=== PATIENT | female | born 1980 | race Two or more races ===

== ENCOUNTER 2018-07-27 08:35 | Emergency (ER) | payer MEDICAID ==
[~2018-07-27] VITALS: Ht 154.9 cm; Wt 72.6 kg
[2018-07-27 08:37] VITALS: BP 146/101
[2018-07-27] MEDS ORDERED: NAPROXEN375 M2 ORAL (09:46)
--- NOTE | 2018-07-27 09:46 | Emergency Room Report ---
History of Present Illness General Chief Complaint: General Complaint Source: Patient Present Illness [facility] This patient has intermittent pain in right jaw, exacerbated/triggered by opening mouth widely. On/off a week or two. No trauma, injury. No other joint problems. Last dentist visit about a year. No specific toothache. No headache, no neck pain. Allergies: Coded Allergies: No Known Allergies (Unverified , 07/27/18) Patient History Last Menstrual Period: 07/16/18 Now: No Nursing Documentation-[facility] Past Medical History: No Stated History Review of Systems Constitutional: Reports: no symptoms Eye: Reports: no symptoms ENT: Reports: no symptoms, see HPI, other Respiratory: Reports: no symptoms Cardiovascular: Reports: no symptoms Gastrointestinal: Reports: no symptoms Genitourinary: Reports: no symptoms Musculoskeletal: Reports: no symptoms Skin: Reports: no symptoms Psychiatric: Reports: no symptoms Neurological: Reports: no symptoms Endocrine: Reports: no symptoms Hematologic/Lymphatic: Reports: no symptoms Allergic: Reports: no symptoms All Other Systems: negative except mentioned in HPI Physical Exam Vital Signs Date Time Temp Pulse Resp B/P (MAP) Pulse Ox O2 Delivery O2 Flow Rate FiO2 07/27/18 08:37 98.0 87 20 146/101 95 Room Air 98.0 Sp02 EP Interpretation: reviewed, normal General Appearance: normal inspection, well appearing, no apparent distress, alert, GCS 15, non-toxic Head: normocephalic, atraumatic Eyes: bilateral eye normal inspection, bilateral eye PERRL, bilateral eye EOMI ENT: normal ENT inspection, hearing grossly normal, normal pharynx, no angioedema, normal voice, moist mucus membranes, other - opening mouth widely triggered symptoms. no tooth tenderness to percussion Neck: normal inspection, full range of motion, supple, no meningismus, no bony tend Respiratory: normal inspection, lungs clear, normal breath sounds, no rhonchi, no respiratory distress, no retraction, no accessory muscle use, no wheezing Cardiovascular #1: normal inspection, regular rate, rhythm, no edema Gastrointestinal: normal inspection, normal bowel sounds, non tender, soft, no mass, non-distended Musculoskeletal: gait/station normal, normal range of motion Neurologic: normal inspection, alert, oriented x3, responsive, motor strength/ tone normal Psychiatric: normal inspection, judgement/insight normal, memory normal Suicide Risk Assessment: Suicidal Ideation: No Had intent to initiate attempt: No Pt's plan for suicide attempt: No Has means to complete attempt: No Skin: normal inspection, normal color, no rash, warm/dry Medical Decision Making Diagnostic Impression: Primary Impression: TMJ syndrome Last Vital Signs Date Time Temp Pulse Resp B/P (MAP) Pulse Ox O2 Delivery O2 Flow Rate FiO2 07/27/18 08:37 98.4 87 20 146/101 95 Room Air 98.4 Disposition: HOME, SELF-CARE Scripts Naproxen* (NAPROXEN*) 375 Mg Tablet. 375 MG ORAL TWICE A DAY for 10 Days, #20 TAB Prov: Jp Santo M.D. 07/27/18 Referrals: NOT CHOSEN [facility]/,REFERRING (PCP) Patient Instructions: Temporomandibular Joint Syndrome Jp Santo M.D. Jul 27, 2018 09:46
[2018-07-27 09:54] VITALS: BP 146/101
== END 2018-07-27 09:54 | disposition home or self-care (01) ==
LOC: EMR 09:39
DX: M26.629 Arthralgia of temporomandibular joint, unspecified side (principal)
CPT/HCPCS: 99282

== ENCOUNTER 2019-02-10 08:35 | Emergency (ER) | payer MEDICAID ==
[~2019-02-10] VITALS: Ht 154.9 cm; Wt 84.8 kg
[~2019-02-10 08:35] MED LIST: NAPROXEN375 M2 ORAL
[2019-02-10] MEDS ORDERED: NKM (08:53)
[2019-02-10 09:24] LABS: HEMATOCRIT 27.4 % (37.0-47.0); HEMOGLOBIN 8.2 G/DL (12.0-16.0); MEAN CORPUSCULAR VOLUME 61 FL (80-99); PLATELET COUNT 493 K/UL (150-450); RED BLOOD COUNT 4.48 M/UL (4.20-5.40); RED CELL DISTRIBUTION WIDTH 15.9 % (11.6-14.8); WHITE BLOOD COUNT 12.8 K/UL (4.8-10.8)
[2019-02-10 09:38] LABS: ANION GAP 12 mmol/L (5-15); BLOOD UREA NITROGEN 8 mg/dL (7-18); CALCIUM 9.4 MG/DL (8.5-10.1); CARBON DIOXIDE 28 MMOL/L (21-32); CHLORIDE 98 MMOL/L (98-107); CREATININE 0.7 MG/DL (0.55-1.30); SODIUM 138 MMOL/L (136-145)
--- NOTE | 2019-02-10 11:02 | Emergency Room Report ---
History of Present Illness General Chief Complaint: Complications Source: Patient Present Illness HPI Patient presents with prescription paper documenting low hemoglobin count from [facility] physician Dr. grimaldo Reports hemoglobin count of 7.7 and requesting blood transfusion Patient reports that she is newly diagnosed with reports that her last Rickie cycle was after the first week of December Denies any abdominal pain She reported that she had some faint spotting previously she is Denies any abdominal pain denies any vomiting or diarrhea denies any flank pain The prescription was written yesterday with blood results from the Allergies: Coded Allergies: No Known Allergies (Unverified , 07/27/18) Patient History Past Medical History: see triage record Pertinent Family History: none Last Menstrual Period: 01/03/2019 Now: Yes : 2 Para: 1 Reviewed Nursing Documentation: PMH: Agreed; PSxH: Agreed Nursing Documentation-PMH Past Medical History: No History, Except For Review of Systems All Other Systems: negative except mentioned in HPI Physical Exam Vital Signs Date Time Temp Pulse Resp B/P (MAP) Pulse Ox O2 Delivery O2 Flow Rate FiO2 02/10/19 08:48 98.1 82 14 136/91 100 Room Air Sp02 EP Interpretation: reviewed, normal General Appearance: well appearing, no apparent distress Head: normocephalic, atraumatic Eyes: bilateral eye PERRL, bilateral eye EOMI ENT: hearing grossly normal, normal pharynx, TMs + canals normal, uvula midline Neck: full range of motion, supple, no meningismus, no bony tend Respiratory: lungs clear, normal breath sounds, no rhonchi, no respiratory distress, no retraction, no accessory muscle use Cardiovascular #1: normal peripheral pulses, regular rate, rhythm, no edema, no gallop, no JVD, no murmur Gastrointestinal: normal bowel sounds, non tender, soft, no mass, no organomegaly, non-distended, no guarding, no hernia, no pulsatile mass, no rebound Genitourinary: no CVA tenderness Musculoskeletal: normal inspection Neurologic: oriented x3, responsive, punch hand III-XII nml as tested, motor strength/ tone normal, sensory intact Psychiatric: mood/affect normal Skin: normal color, no rash, warm/dry, palpation normal Lymphatic: normal inspection, no adenopathy Medical Decision Making Diagnostic Impression: Primary Impression: Complication of Additional Impression: Threatened miscarriage ER Course With the patient's history and examination, multiple differentials considered, including but not limited to , ectopic , ovarian torsion, gastritis, cholecystitis, pancreatitis, appendicitis Hemoglobin count today is 8.2 Patient remains hemodynamically stable appropriate heart rate blood pressure is normal Patient is otherwise completely asymptomatic Today's ultrasound does not reveal any obvious intrauterine patient's beta Quant is documented at 2700 I discussed with the patient the possibilities of incomplete miscarriage Versus ectopic Versus early Less likely early as the beta Quant is at 2700 Patient was provided copies of paperwork Consult is made with [facility] They do agree with the patient's a symptomatic findings in the ultrasound and blood work lack of any free fluid Patient is stable for close repeat outpatient follow-up and return with any concerns or changes such as any pain Labs Test 02/10/19 09:10 White Blood Count 12.8 K/UL (4.8-10.8) Red Blood Count 4.48 M/UL (4.20-5.40) Hemoglobin 8.2 G/DL (12.0-16.0) Hematocrit 27.4 % (37.0-47.0) Mean Corpuscular Volume 61 FL (80-99) Mean Corpuscular Hemoglobin 18.3 PG (27.0-31.0) Mean Corpuscular Hemoglobin Concent 29.9 G/DL (32.0-36.0) Red Cell Distribution Width 15.9 % (11.6-14.8) Platelet Count 493 K/UL (150-450) Mean Platelet Volume 5.7 FL (6.5-10.1) Neutrophils (%) (Auto) % (45.0-75.0) Lymphocytes (%) (Auto) % (20.0-45.0) Monocytes (%) (Auto) % (1.0-10.0) Eosinophils (%) (Auto) % (0.0-3.0) Basophils (%) (Auto) % (0.0-2.0) Differential Total Cells Counted 100 Neutrophils % (Manual) 75 % (45-75) Lymphocytes % (Manual) 17 % (20-45) Monocytes % (Manual) 8 % (1-10) Eosinophils % (Manual) 0 % (0-3) Basophils % (Manual) 0 % (0-2) Band Neutrophils 0 % (0-8) Platelet Estimate Adequate Platelet Morphology Normal Hypochromasia 1+ Anisocytosis 1+ Microcytosis 2+ Sodium Level 138 MMOL/L (136-145) Potassium Level 3.0 MMOL/L (3.5-5.1) Chloride Level 98 MMOL/L (98-107) Carbon Dioxide Level 28 MMOL/L (21-32) Anion Gap 12 mmol/L (5-15) Blood Urea Nitrogen 8 mg/dL (7-18) Creatinine 0.7 MG/DL (0.55-1.30) Estimat Glomerular Filtration Rate > 60 mL/min (>60) Glucose Level 94 MG/DL (74-106) Calcium Level 9.4 MG/DL (8.5-10.1) Human Chorionic Gonadotropin, Quant 2706 mIU/mL (1-6) CT/MRI/US Diagnostic Results CT/MRI/US Diagnostic Results : Impression pelvic ultrasoundIMPRESSION: Essentially negative evaluation. No IUP identified. Differential considerations include early IUP, missed spontaneous , early ectopic . Follow- up evaluation including serial quantitative beta-hCG recommended as well as follow- up ultrasound as clinically warranted. Last Vital Signs Date Time Temp Pulse Resp B/P (MAP) Pulse Ox O2 Delivery O2 Flow Rate FiO2 02/10/19 08:48 98.1 82 14 136/91 100 Room Air Status: improved Disposition: HOME, SELF-CARE Condition: Improved Referrals: NOT CHOSEN [facility]/MD,REFERRING (PCP) Additional Instructions: Patient is provided with the discharge instructions notified to follow up with primary doctor in the next 2-3 days otherwise return to the er with any worsening symptoms. Please note that this report is being documented using [employer] technology. This can lead to erroneous entry secondary to incorrect interpretation by the dictating instrument. Luis Ascencio DO Feb 10, 2019 11:01
--- NOTE | 2019-02-10 11:39 | Diagnostic Imaging Report ---
Indication: Positive test. Spotting. Technique: Grayscale and duplex Doppler imaging of the pelvis performed utilizing a transabdominal scan and endovaginal scan. Comparison: None Findings: There is no IUP. Uterus appears normal with the 11 mm uniformly echogenic central endometrial echo complex. Tiny nonspecific 5 mm cystic focus noted may be within the endometrium or canal. Uterus measures 9.5 x 6.2 x 4.1 cm. There is no free fluid. Left ovary is well-demonstrated shows dopplerable blood flow and measures 3.8 x 1.8 x 2.9 cm. There is a small cyst which may be hemorrhagic within the left ovary measuring 2.3 cm. The right ovary is questioned base seen on transabdominal imaging and is not seen on the transvaginal imaging. There is no adnexal mass identified. IMPRESSION: Essentially negative evaluation. No IUP identified. Differential considerations include early IUP, missed spontaneous , early ectopic . Follow-up evaluation including serial quantitative beta-hCG recommended as well as follow-up ultrasound as clinically warranted.
[2019-02-10 11:58] VITALS: BP 128/88
== END 2019-02-10 11:59 | disposition home or self-care (01) ==
LOC: EMR 09:25
DX: O20.0 Threatened abortion (principal); Z3A.00 Weeks of gestation of pregnancy not specified; R79.89 Other specified abnormal findings of blood chemistry
CPT/HCPCS: 36415; 76801; 76830; 80048; 84702; 85007; 85025; 86900; 86901; 99284